=== PATIENT | female | born 1970 | race Caucasian/White ===

== ENCOUNTER 2023-02-17 16:12 | Emergency (ER) | payer OTHER, SELFPAY ==
[2023-02-17 16:25] VITALS: BP 140/82; PULSE 90; RESP 16; TEMP 37.4; O2SAT 97
--- NOTE | 2023-02-17 16:47 | ED.SKABFB ---
HPI - Skin/Abscess/Foreign Bdy General Chief complaint: Skin/Abscess/Foreign Body Stated complaint: Rash on face Source: patient and RN notes reviewed Limitations: no limitations History of Present Illness HPI narrative: Patient is a 52-year-old female who presents to the [facility] with complaints of rash to bilateral arms and face. Patient states that she was [place]. Patient states that when she got home, she noticed a rash to her rash. She reports itching. States that the rash has spread. She presents with a vesicular rash to the right cheek. Denies visual disturbance. Denies shortness of breath or difficulty breathing. Related Data Home Medications Medication Instructions Recorded Confirmed bupropion HCl 300 mg 24 hr tablet, mg PO 02/17/23 extended release dicyclomine 20 mg tablet mg 02/17/23 ergocalciferol (vitamin D2) 1,250 02/17/23 mcg (50,000 unit) capsule levothyroxine 50 mcg tablet mcg 02/17/23 lorazepam 0.5 mg tablet mg 02/17/23 sertraline 100 mg tablet mg 02/17/23 Allergies Allergy/AdvReac Type Severity Reaction Status Date / Time No Known Allergies Allergy Verified 02/17/23 16:23 Review of Systems Review of Systems: CONSTITUTIONAL: Denies fever, chills, or sweats. EYES: Denies visual changes, redness, or discharge. ENT: Denies otalgia and sore throat CARDIOVASCULAR: Denies chest pain, palpitations, or edema. RESPIRATORY: Denies cough or dyspnea. GASTROINTESTINAL: Denies abdominal pain, nausea, vomiting, or diarrhea. GENITOURINARY: Denies dysuria or hematuria. SKIN: Reports rash to bilateral arm and face. MUSCULOSKELETAL: Denies back pain, joint pain, or myalgia. NEUROLOGIC: Denies headache, numbness, or weakness. Pertinent positives per HPI. PMFSH Comments At the time of my signature, I reviewed and agree with the nursing past medical, surgical, social, and family history. There is no relevant family history pertinent to the patient complaint. Exam Narrative: GENERAL: This is a well-nourished, well-developed patient, in no apparent distress. HEAD: normocephalic, atraumatic. EYES: Sclera clear/white. Vision is grossly intact. EARS: External ears normal. Hearing grossly intact. NOSE: External nose normal with no obvious nasal discharge, nares without redness, no rhinorrhea. THROAT: Mucous membranes moist, posterior pharynx clear. NECK: Neck supple, non-tender without lymphadenopathy, masses or thyromegaly. CARDIOVASCULAR: Regular rate and rhythm without murmurs, gallops, or rubs. RESPIRATORY: Clear to auscultation. Breath sounds equal bilaterally. No wheezes, rales, or rhonchi. GASTROINTESTINAL: Abdomen soft, non-tender, nondistended. Bowel sounds are active. No hepato-splenomegaly, or palpable masses. No guarding. SKIN: warm, intact with no suspicious lesions, good texture and turgor. Vesicular rash to right cheek and bilateral arms; consistent with poison dot. NEURO: awake, alert, and oriented to person, place and time. There were no obvious focal neurologic abnormalities. Course Course Level of Care: Express Care Visit Vital Signs Vital signs: Vital Signs Temperature 99.3 F 02/17/23 16:25 Pulse Rate 90 02/17/23 16:25 Respiratory Rate 16 02/17/23 16:25 Blood Pressure 140/82 02/17/23 16:25 Pulse Oximetry 97 02/17/23 16:25 Oxygen Delivery Room Air 02/17/23 16:25 Temperature 99.3 F 02/17/23 16:25 Pulse Rate 90 02/17/23 16:25 Respiratory Rate 16 02/17/23 16:25 Blood Pressure 140/82 02/17/23 16:25 Pulse Oximetry 97 02/17/23 16:25 Oxygen Delivery Room Air 02/17/23 16:25 Reviewed MDM - Skin/Abscess/Foreign Bdy MDM Narrative Medical decision making narrative: Prevention is always better than treatment. Learn to identify poison dot, oak, and sumac and avoid it. Wear long sleeves, long pants, shoes, and socks. If you touched the plant, try to keep your hands away from y
[2023-02-17] MEDS: methylPREDNISolone SOD SUCC 125 MG VIAL IM (16:48)
== END 2023-02-17 17:06 | disposition home or self-care (01) ==
PROVIDERS: Emergency Provider Nurse Practitioner; PCP Physician Assistant
DX: L24.7 Irritant contact dermatitis due to plants, except food (principal); E03.9 Hypothyroidism, unspecified
CPT/HCPCS: 96372; 99213; G0463; J2930